=== PATIENT | female | born 1990 | race Caucasian/White ===

== ENCOUNTER 2020-02-12 17:52 | Emergency (ER) | payer OTHER ==
[2020-02-12] MEDS ORDERED: AMOX/CLAV 875 MG/125 MG TABLET PO STA (19:39)
[2020-02-12] MEDS ORDERED: BUFFERED LIDOCAINE 10 ML SYRINGE SUBQ STA (19:39)
--- NOTE | 2020-02-12 19:44 | ED Physician Documentation ---
History of Present Illness - Stated complaint Stated Complaint: DOG BITE - Chief complaint Chief Complaint: Laceration - Additonal information Additional information: 29-year-old female presents the emergency department for evaluation of dog bite wounds to her right thumb. Patient reports that she was walking her dog and her dog and another dog got into a fight. She was bitten in an attempt to break up the fight. She is unsure which dog bit her however her tetanus status is up-to-date. Her animals rabies status is up-to-date. Patient is right-handed. She has multiple puncture wounds on the dorsum of the right thumb between the M CP and DIP joint. She also has a 1 cm laceration on the palmar side of the thumb between the MCP and DIP joint. Review of Systems Constitutional: reports: Fever Eyes: reports: Reviewed and negative Ears: reports: Reviewed and negative Nose: reports: Reviewed and negative Throat: reports: Reviewed and negative Cardiac: reports: Reviewed and negative Respiratory: reports: Reviewed and negative Skin: reports: Bite / sting (right thumb puncture wounds, laceration dog bite) Musculoskeletal: reports: Reviewed and negative Neurologic: reports: Reviewed and negative PD PAST MEDICAL HISTORY - Present Medications Home Medications: Ambulatory Orders Medication Instructions Recorded Confirmed No Known Home Medications 02/12/20 02/12/20 - Allergies Allergies/Adverse Reactions: Allergies Allergy/AdvReac Type Severity Reaction Status Date / Time No Known Drug Allergies Allergy Verified 02/12/20 19:05 PD ED PE EXPANDED - Extremities Extremities: Right hand (1 cm laceration palmar side right thumb between MCP and DIP. Multiple puncture wounds on dorsum of right thumb between MCP and DIP. Thumb is grossly swollen and ecchymotic. Preserved flexion and extension at MCP and DIP against resistance.) Results - Vitals Vitals: Vital Signs - 24 hr 02/12/20 19:02 Temperature 37.3 C Heart Rate 103 H Respiratory 20 Rate Blood Pressure 160/94 H O2 Saturation 99 Oxygen O2 Source Room air - Rads (name of study) right hand Radiology: Final report received (no fracture or osseous lesion) PD MEDICAL DECISION MAKING - ED course Complexity details: reviewed results, considered differential, d/w patient ED course: 29-year-old female presents to the emergency department for evaluation and management of dog bite wound to the right thumb sustained this afternoon when she broke up a dog fight between her animal and another. She has multiple puncture wounds on the dorsum of the thumb as well as a 1 cm laceration on the palmar side. Though not ideal the wound is not likely to heal well without attempting mild approximation therefore I will place 1 stitch and start her prophylactically on antibiotics
[2020-02-12] MEDS: BACITRACIN ZINC OINT 1 PACKET TOP STA (19:47)
--- NOTE | 2020-02-12 20:22 | XRAY Report ---
PROCEDURE: Hand 3 View RT INDICATIONS: dog bite thumb; r/o fx TECHNIQUE: 3 views of the hand(s) acquired. COMPARISON: None FINDINGS: Bones: No fractures or dislocations. No suspicious bony lesions. Soft tissues: No suspicious soft tissue calcifications. No soft tissue gas or radiodense foreign bod ies. IMPRESSION: No fracture. No osseous lesion. If there is continued clinical concern for pathology, then repeat phill in film radiographs (7-10 days) or advanced imaging (CT, MR, bone scan) should be considered for furt her evaluation. Reviewed by: Vale Genao MD, PhD on 02/12/2020 8:20 PM PST Approved by: Vale Genao MD, PhD on 02/12/2020 8:20 PM PST Station ID: [id number]
[2020-02-12 20:55] VITALS: BP 122/72
== END 2020-02-12 20:55 | disposition home or self-care (01) ==
LOC: ED 17:52
DX: S61.051A Open bite of right thumb without damage to nail, initial encounter (principal); W54.0XXA Bitten by dog, initial encounter; Y92.830 Public park as the place of occurrence of the external cause
CPT/HCPCS: 12001; 73130; 99281; 99283; A9270

== ENCOUNTER 2020-02-13 16:44 | Emergency (ER) | payer OTHER ==
--- NOTE | 2020-02-13 16:58 | ED Physician Documentation ---
PD HPI WOUND RECHECK - Stated complaint Stated Complaint: ANTIBIOTICS - Histroy obtained from History obtained from: Patient - History of Present Illness Location: Right Hand (base of thumb) Timing - onset: Yesterday Associated symptoms: Swelling. No: Redness, Drainage Similar symptoms before: Has not had sx before Recently seen: Emergency Dept (yesterday with sutures and started augmentin. She was at pharmacy getting Rx when power went out so they could not finish filling it. She is here for repeat dose abx and for wound check/dressing change.) Review of Systems Constitutional: denies: Fever, Chills Neurologic: denies: Focal weakness, Numbness PD PAST MEDICAL HISTORY - Past Medical History Past Medical History: No - Past Surgical History Past Surgical History: Yes HEENT: Other - Present Medications Home Medications: Ambulatory Orders Medication Instructions Recorded Confirmed Amox/Clav 875/125 [Augmentin] 1 each PO Q12H #20 tablet 02/12/20 - Allergies Allergies/Adverse Reactions: Allergies Allergy/AdvReac Type Severity Reaction Status Date / Time No Known Drug Allergies Allergy Verified 02/12/20 19:05 - Social History Does the pt smoke?: No Smoking Status: Never smoker Does the pt drink ETOH?: No Does the pt have substance abuse?: No - Immunizations Immunizations are current?: Yes PD ED PE NORMAL - Vitals Vital signs reviewed: Yes - General General: Alert and oriented X 3, No acute distress, Well developed/nourished - Extremities Extremities: Other (dressing removed and the wound is intact with sutures. No drainage. Mild swelling. No redness. ) - Neuro Neuro: No motor deficit, No sensory deficit Results - Vitals Vitals: Oxygen O2 Source Room air PD MEDICAL DECISION MAKING - ED course Complexity details: considered differential, d/w patient Departure - Departure Disposition: Home, Self Care Clinical Impression: Encounter for wound re-check Condition: Stable
[2020-02-13] MEDS ORDERED: AMOX/CLAV 875 MG/125 MG TABLET PO ONE (17:28)
== END 2020-02-13 17:23 | disposition home or self-care (01) ==
LOC: ED 16:44
DX: S61.411A Laceration without foreign body of right hand, initial encounter (principal); X58.XXXA Exposure to other specified factors, initial encounter; Z48.00 Encounter for change or removal of nonsurgical wound dressing
CPT/HCPCS: 99282; A9270

== ENCOUNTER 2020-05-14 10:02 | Emergency (ER) | payer OTHER ==
--- NOTE | 2020-05-14 10:46 | ED Physician Documentation ---
History of Present Illness - Stated complaint Stated Complaint: THROAT LUMP - Chief complaint Chief Complaint: Heent - History obtained from History obtained from: Patient - Additonal information Additional information: 29yF p/w L submandibular swelling for the past few days, nontender, seen at clinic and told it was inflammatory and given steroids yesterday, still with swelling. also c/o acid reflux. denies cp, nausea, fevers. +burping. Review of Systems Ten Systems: 10 systems reviewed and negative Constitutional: denies: Fever, Chills Cardiac: denies: Chest pain / pressure GI: reports: Abdominal Pain. denies: Nausea, Vomiting PD PAST MEDICAL HISTORY - Past Surgical History Past Surgical History: Yes HEENT: Other - Present Medications Home Medications: Ambulatory Orders Medication Instructions Recorded Confirmed No Known Home Medications 05/14/20 05/14/20 - Allergies Allergies/Adverse Reactions: Allergies Allergy/AdvReac Type Severity Reaction Status Date / Time No Known Drug Allergies Allergy Verified 05/14/20 10:19 - Social History Does the pt smoke?: No Smoking Status: Never smoker Does the pt drink ETOH?: No Does the pt have substance abuse?: No - Immunizations Immunizations are current?: Yes PD ED PE NORMAL - Vitals Vital signs reviewed: Yes - General General: Alert and oriented X 3, No acute distress, Well developed/nourished - HEENT HEENT: Atraumatic, PERRL, EOMI, Moist mucous membranes, Pharynx benign - Neck Neck: Other (L submandibular nontender swelling at site of salivary gland. appears to be glandular enlargement on POCUS) - Cardiac Cardiac: RRR - Respiratory Respiratory: No respiratory distress, Clear bilaterally, Other (normal upper respiratory sounds on neck auscultation) - Abdomen Abdomen: Non tender, Non distended Results - Vitals Vitals: Oxygen O2 Source Room air PD MEDICAL DECISION MAKING - ED course ED course: 29yF p/w R submandibular swelling, found to have salivary gland vs LN enlargement on ultrasound. Advised patient to suck on hard sour candies, follow up with doctor if fevers occur or no improvement in 1 week. strict return precautions to ED given. Departure - Departure Disposition: 01 Home, Self Care Clinical Impression: Enlarged salivary gland, Stomach irritation Condition: Good Instructions: Aluminum Hydroxide Magnesium Carbonate chewable tablets Comments: You were seen in the emergency department for stomach irritation and for a lump under your jaw that I believe is submandibular salivary gland enlargement. Try sucking on hard lemon candies and massaging the area gently to try to reduce it. If it starts to become painful, increases in size, or gets worse then return to the emergency department or follow-up with your primary doctor. For your stomach pain, you can get [id number] Maalox. Speak with the pharmacist about your symptoms and see if they have any other recommendations. Return to the emergency department for any other concerns or worsening of symptoms. Discharge Date/Time: 05/14/20 10:54
[2020-05-14 10:51] VITALS: BP 126/97
== END 2020-05-14 10:54 | disposition home or self-care (01) ==
LOC: ED 10:02
DX: K11.9 Disease of salivary gland, unspecified (principal); K31.89 Other diseases of stomach and duodenum
CPT/HCPCS: 99281; 99282